=== PATIENT | female | born 1935 | race African-American/Black ===

== ENCOUNTER 2019-01-16 07:51 | Emergency (ER) | payer OTHER ==
[~2019-01-16] VITALS: Ht 167.6 cm; Wt 80.0 kg
[2019-01-16 09:08] LABS: HEMATOCRIT. 36.3 % (36.0-48.0); HEMOGLOBIN. 10.8 g/dL (12.0-16.0); MEAN CORPUSCULAR HEMOGLOBIN 28.5 pg (28.0-32.0); MEAN CORPUSCULAR VOLUME 95.9 fL (81.0-99.0); MEAN PLATELET VOLUME 7.9 fl (7.4-10.4); PLATELET 345 x1000/uL (130-400); RED BLOOD CELL COUNT 3.78 mill/uL (4.2-5.4); RED CELL DISTRIBUTION WIDTH 20.1 % (11.6-14.6)
[2019-01-16 09:15] LABS: CHLORIDE 110 mEq/L (98-107)
[2019-01-16] MEDS ORDERED: ACETAMINOPHEN 500MG TABLET PO ONE (09:15)
[2019-01-16] MEDS ORDERED: SODIUM CHLORIDE 0.9% 1000ML BAG (SEPSIS BOLUS) IV ONE (09:15)
[2019-01-16 09:19] LABS: ETHANOL BLOOD < 10 mg/dL
[2019-01-16 09:22] LABS: PLATELET ESTIMATE NORMAL
[2019-01-16 09:47] LABS: INR 1.1; PROTHROMBIN TIME 11.3 sec (9.6-11.0)
[2019-01-16] MEDS ORDERED: ASPIRIN 81MG TABLET PO ONE (11:00)
[2019-01-16 11:25] LABS: CLARITY URINE CLOUDY (CLEAR); COLOR URINE YELLOW (YELLOW); KETONES URINE NEGATIVE (NEGATIVE); LEUKOCYTE ESTERASE URINE NEGATIVE (NEGATIVE); NITRITE URINE NEGATIVE (NEGATIVE); OCCULT BLOOD URINE TRACE (NEGATIVE); PROTEIN URINE 2+ (NEGATIVE); SPECIFIC GRAVITY URINE 1.024 (1.005-1.030)
[2019-01-16 11:54] LABS: OPIATES URINE SCREEN NEGATIVE (NEGATIVE); PHENCYCLIDINE URINE SCREEN NEGATIVE (NEGATIVE)
[2019-01-16 11:55] LABS: *AMPHETAMINES SCREEN URINE NEGATIVE (NEGATIVE); *BARBITURATES SCREEN URINE NEGATIVE (NEGATIVE); *BENZODIAZEPINES SCREEN URINE NEGATIVE (NEGATIVE); *COCAINE SCREEN URINE NEGATIVE (NEGATIVE); CANNABINOID URINE SCREEN NEGATIVE (NEGATIVE); METHADONE URINE SCREEN NEGATIVE (NEGATIVE)
[2019-01-16 12:38] VITALS: BP 149/86
== END 2019-01-16 12:45 | disposition short-term general hospital (02) ==
LOC: ER 07:51
DX: R55 Syncope and collapse (principal); D64.9 Anemia, unspecified; R79.89 Other specified abnormal findings of blood chemistry; I11.0 Hypertensive heart disease with heart failure; I50.9 Heart failure, unspecified; Z90.710 Acquired absence of both cervix and uterus; Z90.49 Acquired absence of other specified parts of digestive tract; Z90.89 Acquired absence of other organs; Z88.6 Allergy status to analgesic agent; Z88.0 Allergy status to penicillin
CPT/HCPCS: 36415; 70450; 71045; 80053; 80305; 80320; 81003; 83605; 83880; 84145; 84484; 85025; 85610; 87040; 87086; 93005; 99285; J7030; G0480

== ENCOUNTER 2019-02-13 20:29 | Inpatient (IN) | payer OTHER ==
[~2019-02-13] VITALS: Ht 171.4 cm; Wt 60.3 kg
[2019-02-13] MEDS ORDERED: LEVOFLOXACIN 750MG PREMIX 150 ML IV ONE (21:30)
[2019-02-13] MEDS ORDERED: VANCOMYCIN 1 G PREMIX 200 ML IV ONE (21:30)
[2019-02-13] MEDS ORDERED: SODIUM CHLORIDE 0.9% 1000ML BAG (SEPSIS BOLUS) IV ONE (21:30)
[2019-02-13] MEDS ORDERED: HYDROCORTISONE SOD SUCCINATE 100 MG/2 ML VIAL IV ONE (21:30)
[2019-02-13 21:59] LABS: BASOPHILS % 1.2 % (0.0-2.0); EOSINOPHILS % 0.9 % (0.0-5.0); HEMOGLOBIN. 12.4 g/dL (12.0-16.0); LYMPHOCYTES % 13.2 % (20.0-50.0); MEAN CORPUSCULAR HEMOGLOBIN 29.3 pg (28.0-32.0); MEAN CORPUSCULAR VOLUME 97.3 fL (81.0-99.0); MEAN PLATELET VOLUME 8.3 fl (7.4-10.4); MONOCYTES % 6.9 % (2.0-8.0); NEUTROPHILS % 77.8 % (40.0-76.0); PLATELET 294 x1000/uL (130-400); RED BLOOD CELL COUNT 4.22 mill/uL (4.2-5.4); RED CELL DISTRIBUTION WIDTH 21.4 % (11.6-14.6)
[2019-02-13 22:02] LABS: CHLORIDE 102 mEq/L (98-107)
[2019-02-13 22:04] LABS: INR 1.1; PROTHROMBIN TIME 10.9 sec (9.6-11.0)
[2019-02-13] MEDS ORDERED: ENOXAPARIN 40MG/0.4ML SYR SUBCUT ONE (22:45)
[2019-02-13] MEDS ORDERED: FUROSEMIDE 20MG/2ML VIAL IVP ONE (23:15)
[2019-02-13 23:58] LABS: CLARITY URINE TURBID (CLEAR); COLOR URINE DARK YELLOW (YELLOW); KETONES URINE 1+ (NEGATIVE); LEUKOCYTE ESTERASE URINE TRACE (NEGATIVE); NITRITE URINE NEGATIVE (NEGATIVE); OCCULT BLOOD URINE 2+ (NEGATIVE); PROTEIN URINE 2+ (NEGATIVE); SPECIFIC GRAVITY URINE 1.029 (1.005-1.030)
[2019-02-14] VITALS (12 sets, daily range): BP systolic 113–158; BP diastolic 64–104
[2019-02-14] MEDS ORDERED: HEPARIN 5000 UNITS/ML VIAL IV SCH (05:15)
[2019-02-14] MEDS ORDERED: HEPARIN 25,000 UNITS PREMIX 500 ML IV PRN (08:00)
[2019-02-14 08:03] LABS: *AMPHETAMINES SCREEN URINE NEGATIVE (NEGATIVE); *BARBITURATES SCREEN URINE NEGATIVE (NEGATIVE); *BENZODIAZEPINES SCREEN URINE NEGATIVE (NEGATIVE)
[2019-02-14 08:04] LABS: *COCAINE SCREEN URINE NEGATIVE (NEGATIVE)
[2019-02-14 08:06] LABS: CANNABINOID URINE SCREEN NEGATIVE (NEGATIVE); METHADONE URINE SCREEN NEGATIVE (NEGATIVE); OPIATES URINE SCREEN NEGATIVE (NEGATIVE)
[2019-02-14 08:07] LABS: PHENCYCLIDINE URINE SCREEN NEGATIVE (NEGATIVE)
[2019-02-14 08:08] LABS: CREATINE KINASE MB FRACTION 17.5 ng/mL (0.5-3.6)
[2019-02-14] MEDS: METOPROLOL TARTRATE 25MG TABLET PO SCH ×2 (08:52→21:00)
[2019-02-14] MEDS ORDERED: LORAZEPAM 0.5MG TABLET PO PRN (09:00)
[2019-02-14] MEDS ORDERED: CLONIDINE 0.1MG TABLET PO PRN (09:00)
[2019-02-14] MEDS ORDERED: ACETAMINOPHEN 325MG TABLET PO PRN (09:00)
[2019-02-14] MEDS ORDERED: IPRATROPIUM/ALBUTEROL 0.5-3(2.5)MG/3ML NEB INH PRN (09:00)
[2019-02-14] MEDS ORDERED: ONDANSETRON HCL 4MG/2ML INJ IV PRN (09:00)
[2019-02-14] MEDS ORDERED: DOCUSATE SODIUM 100MG CAPSULE PO PRN (09:00)
[2019-02-14] MEDS ORDERED: ASPIRIN 81MG TABLET PO SCH ×2 (09:00)
[2019-02-14] MEDS ORDERED: HYDROCODONE/ACETAMINOPHEN 5/325MG TABLET PO PRN (09:00)
[2019-02-14] MEDS ORDERED: SODIUM CHLORIDE 0.9% 1,000 ML IV SCH (09:30)
[2019-02-14] MEDS: CLOPIDOGREL 75MG TABLET PO SCH (11:23)
[2019-02-14] MEDS: AMLODIPINE 5MG TABLET PO SCH ×2 (11:23→21:00)
[2019-02-14] MEDS ORDERED: HEPARIN 5000 UNITS/ML VIAL IV PRN ×2 (12:00)
[2019-02-14] MEDS ORDERED: ATORVASTATIN CALCIUM 20MG TABLET PO SCH (21:00)
[2019-02-14] MEDS ORDERED: LEVOFLOXACIN 250MG PREMIX 50 ML IV SCH (22:00)
[2019-02-15] VITALS (11 sets, daily range): BP systolic 109–136; BP diastolic 60–93
[2019-02-15 07:05] LABS: HEMATOCRIT. 41.1 % (36.0-48.0); HEMOGLOBIN. 12.3 g/dL (12.0-16.0); MEAN CORPUSCULAR HEMOGLOBIN 29.4 pg (28.0-32.0); MEAN CORPUSCULAR VOLUME 98.7 fL (81.0-99.0); MEAN PLATELET VOLUME 8.5 fl (7.4-10.4); PLATELET 274 x1000/uL (130-400); RED BLOOD CELL COUNT 4.16 mill/uL (4.2-5.4); RED CELL DISTRIBUTION WIDTH 22.1 % (11.6-14.6)
[2019-02-15 07:09] LABS: CHLORIDE 102 mEq/L (98-107)
[2019-02-15] MEDS: CLOPIDOGREL 75MG TABLET PO SCH (08:58)
[2019-02-15] MEDS: AMLODIPINE 5MG TABLET PO SCH (08:58)
[2019-02-15] MEDS: METOPROLOL TARTRATE 25MG TABLET PO SCH (08:59)
[2019-02-15 13:50] LABS: ATYPICAL LYMPHOCYTES 1; PLATELET ESTIMATE NORMAL
== END 2019-02-15 20:30 | disposition short-term general hospital (02) | DRG 871 ==
LOC: ER 21:00 → 3WST 23:08 → EDBEDREQ 23:09 → EDBEDREQTM 23:09 → ENRESERV 02-14 00:32
PROVIDERS: ADMIT Internal Medicine; ATTEND Internal Medicine
DX: A41.9 Sepsis, unspecified organism (principal); I21.4 Non-ST elevation (NSTEMI) myocardial infarction; N39.0 Urinary tract infection, site not specified; I50.22 Chronic systolic (congestive) heart failure; I69.354 Hemiplegia and hemiparesis following cerebral infarction affecting left non-dominant side; R35.8 Other polyuria; R80.9 Proteinuria, unspecified; R06.89 Other abnormalities of breathing; L89.150 Pressure ulcer of sacral region, unstageable; L89.320 Pressure ulcer of left buttock, unstageable; L89.310 Pressure ulcer of right buttock, unstageable; R31.9 Hematuria, unspecified; F03.90 Unspecified dementia, unspecified severity, without behavioral disturbance, psychotic disturbance, mood disturbance, and anxiety; I11.0 Hypertensive heart disease with heart failure; J44.9 Chronic obstructive pulmonary disease, unspecified; Z91.19 Patient's noncompliance with other medical treatment and regimen; Z88.0 Allergy status to penicillin; Z88.6 Allergy status to analgesic agent
CPT/HCPCS: 36415; 51702; 71045; 80048; 80061; 80305; 82550; 82553; 83036; 83605; 83735; 83880; 84134; 84145; 84443; 84484; 87070; 93005; 93306; 93970; 96365; 96366; 96368; 96372; 96375; 99291; J1644; J1650; J1720; J1940; J1956; J3370; J7030; J7050; A4315